=== PATIENT | male | born 1990 | race Caucasian/White ===

== ENCOUNTER 2021-11-06 18:38 | Emergency (ER) | payer MEDICAID ==
[~2021-11-06] VITALS: Ht 167.6 cm; Wt 65.0 kg
[2021-11-06 18:44] VITALS: BP 107/72
== END 2021-11-06 22:44 | disposition left against medical advice (07) ==
LOC: ER 18:38
DX: Z53.21 Procedure and treatment not carried out due to patient leaving prior to being seen by health care provider (principal)